=== PATIENT | female | born 2000 | race Caucasian/White ===

== ENCOUNTER 2024-04-12 18:35 | Emergency (ER) | payer MEDICAID, SELFPAY ==
[2024-04-12 18:36] VITALS: BP 144/74; PULSE 86; RESP 16; TEMP 36.8; O2SAT 99; BMI 31.9
--- NOTE | 2024-04-12 18:44 | EX.ED.VIS.UR ---
HPI HPI - URI History of Present Illness Chief Complaint: Sore Throat Informant: patient Onset/Context/Timing Onset: Weeks (1) Context: Gradual Onset Timing: Continuous Quality: Irritated Location: Throat Worsened by: - (Nothing) Relieved by: - (Drinking fluids) Associated Symptoms Associated Symptoms: Positive for Productive Cough; Negative for Nasal Congestion, Headache, Sinus Pressure, Myalgias, Nausea, Vomiting, Diarrhea, Shortness of Breath, Chest Pain, Nonproductive cough or Hemoptysis Narrative Narrative: Patient presents with sore throat that has been getting worse over the past week. Patient states it is gradually getting worse. Patient states her throat feels irritated. Patient states that drinking fluids seems to help. Patient has been using [id number] cough medicines with minimal relief. Patient states she is coughing up some green sputum. Patient denies any nausea or vomiting. Patient denies any shortness of breath or pain in her chest. ROS ROS ED Constitutional Constitutional ED: Denies chills or fever(s) Eyes Eyes: Denies blurry vision or change in vision ENT ENT ED: Reports sore throat; Denies rhinorrhea Cardiovascular Cardiovascular: Denies chest pain or palpitations Respiratory/Chest Respiratory/Chest: Denies cough or dyspnea Gastrointestinal Gastrointestinal: Denies nausea or vomiting Genitourinary Genitourinary ED: Denies dysuria or hematuria Musculoskeletal Musculoskeletal: Reports back pain; Denies neck pain Integumentary Denies abscess or rash Neurologic Neurologic: Denies headache(s) or weakness Allergic/Immunologic Allergic/Immunologic ED: Denies mouth swelling or urticaria [facility] Medical History Physical exam, pre-employment Home Medications ?Medication ?Instructions ?Recorded ?Last Taken ?Type NK 04/12/24 Unknown History Allergy/AdvReac Type Severity Reaction Status Date / Time No Known Allergies Allergy Verified 04/12/24 18:38 Surgical History History of dilation and curettage Social History Smoking Status: Never smoker EXAM Physical Exam Const Vital Signs: 04/12/24 18:36 04/12/24 19:38 Temperature 98.2 F 98.2 F Temperature Source Oral Oral Pulse Rate 86 86 Respiratory Rate 16 16 Blood Pressure 144/74 H 144/74 H Blood Pressure Mean 97 97 Pulse Ox 99 99 Oxygen Delivery Method Room Air Room Air Positive well nourished and well developed General Appearance ED: well developed and NAD HEENT Reports moist mucous membranes Throat: posterior oropharynx abnormal Positive for cobblestoning, erythema and exudates Neck no lymphadenopathy, supple and no JVD Resp normal respiratory effort and clear to auscultation bilaterally Cardio Rate: regular rate Rhythm: regular rhythm GI non-tender and non-distended Palpation: soft Back/Spine Back/Spine Narrative: There is left thoracic paraspinal tenderness and mild spasm at approximately the T8-T9 level. There is no bony crepitance no midline tenderness. There is good range of motion. Extremity full ROM Neuro oriented x3, CN's II-XII intact bilaterally and no sensory deficits noted Sensorium / Orientation: alert Motor Exam: strength 5/5 throughout MDM MDM MDM Narrative Medical decision making narrative: Differential diagnosis includes strep pharyngitis, viral pharyngitis, viral upper respiratory infection, and thoracic strain. Rapid strep will be obtained to assess for strep pharyngitis. COVID-19, influenza, and RSV PCR will be obtained to assess for viral upper respiratory infection Lab Data Attestation: I reviewed the patient's lab results. Lab results narrative: Rapid strep PCR was reviewed and was negative. COVID-19 PCR was reviewed and was positive. Influenza PCR was reviewed and was negative for influenza A and influenza B. RSV PCR was reviewed and was negative. Treatment and Re-Evaluation Narrative: Patient was advised of her findings. Patient was instructed to drink plenty of fluids. Patient was instructed to take Tylenol or ibuprofen as needed for any fevers. Patient was instructed to return if worse in any way. Patient understood and was agreeable with the plan. All questions were answered. Discharge Plan Triage Chief Complaint: Sore Throat ED Provider: Dane Willams Dx/Rx/DC Orders Clinical Impression: COVID-19, Pharyngitis Instructions: Coronavirus Disease 2019 (COVID-19): Caring for Yourself or Others Prescriptions: No Action NK Primary Care Provider: Care Physician,No Primary Referrals: Carisa Francis MD [Med Staff - Contact Center Associate] - 5-7 Days Care Physician,No Primary [Primary Care Provider] - Print Language: Cambodian Disposition Disposition: Home, Self Care
[2024-04-12 19:38] VITALS: BP 144/74; PULSE 86; RESP 16; TEMP 36.8; O2SAT 99
== END 2024-04-12 20:10 | disposition home or self-care (01) ==
PROVIDERS: Emergency Provider Emergency Medicine; Referring Provider Emergency Medicine; Visit Provider Emergency Medicine
DX: U07.1 COVID-19 (principal); J02.9 Acute pharyngitis, unspecified
CPT/HCPCS: 87631; 87651; 99282